=== PATIENT | female | born 1980 | race Hispanic/Latino ===

== ENCOUNTER 2017-03-23 12:30 | Emergency (ER) | payer SELFPAY ==
[~2017-03-23] VITALS: Ht 160 cm; Wt 69.1 kg
[2017-03-23 12:38] VITALS: BP 100/69; PULSE 76; RESP 16; O2SAT 97
--- NOTE | 2017-03-23 14:27 | ED.REPORT ---
HPI-Back Pain Under 40 Date of Service Mar 23, 2017 ED Provider: Juan Manuel Merlos MD Pt is a 36 year old female presenting to the ED complaining of lower back pain sudden onset 4 days ago. Pain exacerbated by movement, and pt has decreased ROM. She also reports that she had an extended period for 3 weeks, which stopped yesterday. She denies any mechanism of injury or previous similar symptoms. Denies diarrhea, constipation, abdominal pain, dysuria, nausea, vomiting, fever, chills, diaphoresis, or any other symptoms at this time. Nursing Notes Stated Complaint: BACK PAIN Chief Complaint: Back Pain or Injury Nursing Notes Reviewed: Yes ([employer], meds not reconciled) Allergies: Coded Allergies: No Known Allergies (Unverified , 03/23/17) Scheduled PRN Hydrocodone-Acetaminophen 5-325 mg (Hydrocodone-Acetaminophen 5-325 mg) 1 Each Tablet 1-2 TABLET PO Q6H PRN PRN For Pain In [place] please Ibuprofen (Ibuprofen) 800 Mg Tablet 800 MG PO TID PRN PRN For Pain In [place] please General Time Seen by MD: 14:24 Chief Complaint Back pain Hx Obtained From: Patient Arrived By: Walk-in Sudden in Onset?: Yes Onset Occurred: 4 days ago Symptom Duration: Since onset Caused by: Spontaneous/no mechanism Quality: Painful Severity: Current: Severe Severity: Maximum: Severe Recent Healthcare: No recent doctor visit, No recent hospitalization Similar Sx Previous: No Past Medical History Past Medical History healthy Past Surgical History Nose surgery Reports: Appendectomy, , Cholecystectomy Smoking History Light Tobacco Smoker Social History Alcohol Use: Denies alcohol use Drug Use: Denies drug use Ambulatory Status Independent Review of Systems Constitutional: Denies: Chills, Fever GI: Denies: Abdominal pain, Constipation, Diarrhea, Nausea, Vomiting Female: Denies: Dysuria Musculoskeletal: Reports: Back pain Complete sys rev & neg: except as marked. Physical Exam Initial Vital Signs Vital Signs (First) Date Time Temp Pulse Resp B/P Pulse Ox O2 Delivery O2 Flow Rate FiO2 03/23/17 12:38 37.6 76 16 100/69 97 Initial VS: Reviewed, Vital signs normal Head / Eyes: Atraumatic, Normocephalic, PERRL ENT: Mucous membranes moist, Conjunctiva normal, No scleral icterus Respiratory: Breath sounds normal, Clear to auscultation, No respiratory distress Abdomen / GI: Soft, Non-tender, No guarding, No rebound, No distention Extremities: Vascular intact, Neuro intact, No swelling, No tenderness Skin: Warm, Dry, No cyanosis Psychiatric: Mood/affect normal, Behavior normal, Normal thought content General/Constitutional: Awake, Alert, No acute distress, Well appearing Back: Atraumatic, No CVA tenderness Mechanical lower back pain worse with movement. Negative straight leg raise Neurologic: Oriented X3, Speech NL, No motor deficits, No sensory deficits, Reflexes equal bilat Re-Eval/Medical Decision Med Decision/Clinical Course This is a 36-year-old female who presents with nontraumatic low back pain onset Tuesday. Some mechanical pain across the low back, worse with twisting turning or moving. There has been no fevers, no numbness, paresthesias, no bowel or bladder changes, no history of IV drug use, and no red flags for need for emergent imaging. She took a dose of ibuprofen yesterday but is still having significant discomfort reports she is quite miserable. She has no previous history of back pain. She has no major medical problems. On exam she appears uncomfortable with movement, but is a symptomatic at rest. She has a normal neurologic exam. Again there are no slight features or red flags to necessitate laboratory or neuro imaging. The patient's received a dose of Toradol. She is being discharged in a course of ibuprofen and a few when necessary hydrocodone. A work note for 2 days been given. Routine and return precautions reviewed Source of Hx: Old records (none in EMR) Re-Evaluation/Progress : Time of Eval: 14:34 Patient Status: Condition improved Re-Evaluation/Progress Note: Discussed plan for discharge. Pt understands and agrees with plan. Differential Diagnosis: Positive: Musculoskeletal pain, Negative: Abrasion, Aortic dissection, Cholecystitis, Cholelithiasis, Epidural abscess, Epidural hematoma, Fracture rib, Fracture vertebrae, Gun shot wound, Sciatica, Stab wound Counseled Regarding: Diagnosis, Lab results, Need for follow-up, When/why to return to ED Discharge & Departure Impression: Primary Impression: Lumbosacral strain Encounter type: initial encounter Qualified Code: S39.012A - Strain of muscle, fascia and tendon of lower back, initial encounter Disposition: Home All VS Reviewed: Yes Condition: Improved Additional Instructions: 1. No dangerous cause for your back pain today was identified. I do not think there are any signs of fracture, or relation of your back pain to your extended period. 2. Continue taking Ibuprofen 800mg three times as needed for pain. 3. If needed for more severe pain you can take hydrocodone/APAP 5/325 1-2 tabs up to every 6 hours (start with 1 tab!). NOTE: This medication contains a narcotic and causes drowsiness. No driving for at least 4 hours after taking. Use sparingly, and only if needed. 4. No heavy lifting, but other activities as tolerated. Studies that demonstrated a resolution of symptoms with a return to mild activities. 5. Return to the ER if you develop any new or worsening symptoms such as a fever , numbness, or vomiting. 1. No se pudo identificar nada de peligro que pudiera estar causando corona dolor de espalda. No creo que haya senales de que tenga alguna fractura o que lo que siente liz relacionado con la enriqueta que le dulce mucho tiempo. 2. Continue tomandose el Ibuprofen 800mg rhonda veces al michael si lo necesita para el dolor. 3. Si necesitara algo mas leigh ann, tomese el hydrocodone/APAP 5/325 1-2 tabletas hasta cada 6 horas (comienze tomandose solo 1!). NOTA: Liz medicamento contiene un narcotico y causa adormecimiento. No maneje por lo menos 4 horas despues de haberselas tomado. [place] solo unas cuantas y unicamente si de verdad las necesita. 4. No levante nada pesado, laci dana otras actividades isidro las pueda ir aguantando. Rosales habido estudios que demostraron que los sintomas desaparecen mas facilmente cuando braeden se mantiene levemente activo. 5. Vuelva a la sherri de emergencias si gabo sintomas empeoran o algun otro surge isidro la fiebre, entumecimiento o vomito. Referrals: [facility] (PCP) [facility] Jorgito Attestation Portions of this note were transcribed by Tamra Rivas. I, Dr. Merlos personally performed the history, physical exam and medical decision-making; I reviewed and confirmed the accuracy of the information in the transcribed note. Signed by: Jorgito Olguin, 03/23/17 at 1500. copies to: [facility] Juan Manuel Merlos MD Mar 23, 2017 14:27 TAMRA RIVAS Mar 23, 2017 14:36
[2017-03-23] MEDS ORDERED: HYDR-4003 PO (14:45)
[2017-03-23] MEDS ORDERED: IBUP800T28 PO (14:45)
[2017-03-23 15:47] VITALS: BP 105/67; PULSE 61; O2SAT 98
== END 2017-03-23 15:40 | disposition home or self-care (01) ==
LOC: SED 12:30
DX: S39.012A Strain of muscle, fascia and tendon of lower back, initial encounter (principal); X58.XXXA Exposure to other specified factors, initial encounter; Y92.9 Unspecified place or not applicable; Y93.9 Activity, unspecified; Y99.9 Unspecified external cause status; F17.200 Nicotine dependence, unspecified, uncomplicated
CPT/HCPCS: 81025; 96372; 99284; J1885